=== PATIENT | male | born 1970 | race Caucasian/White ===

== ENCOUNTER 2021-06-30 18:20 | Inpatient (IN) | payer SELFPAY ==
[2021-06-30 19:00] VITALS: BP 130/83; PULSE 102; RESP 20; TEMP 37; O2SAT 95
[2021-06-30 19:59] VITALS: BMI 28.7
[2021-06-30] MEDS: trazodone 50 mg Tablet PO (21:23)
[2021-06-30] MEDS: hyDROXYzine 25 mg Capsule 50 MG PO (21:23)
--- NOTE | 2021-06-30 21:25 | PC.NURSE ---
PT REQUESTED SLEEP MED, TRAZODONE 50MG PO GIVEN.
[2021-06-30 21:50] VITALS: BP 135/93; PULSE 101; RESP 16; TEMP 36.7; O2SAT 98
--- NOTE | 2021-06-30 23:05 | PC.NURSE ---
PT RESTING QUIETLY WITH BOTH EYES CLOSED AT THIS TIME.
[2021-07-01 06:00] VITALS: BP 138/101; PULSE 75; RESP 18; TEMP 37; O2SAT 92
--- NOTE | 2021-07-01 08:39 | PM.NHP ---
Providers/Chief Complaint Admitting Physician: Roberto Silverio MD Chief Complaint: SI HPI NPU History of Present Illness Augusto Delgadillo is a 50 year old male who presented to an outside hospital reporting alcohol withdraw and suicidal ideation. He reported to them that he was an extreme alcoholic, drinking about a half-gallon of liquor a day, his last drink was about five or six hours before he presented, and endorsed he was having withdraw and started having thoughts to kill himself. He reported being vaccinated for COVID. He was having nausea, vomiting, and was unable to contract for safety. He was transferred to [facility] and admitted to the neuropsychiatric unit for definitive treatment of those issues. He presents today reporting that this is about his sixth inpatient hospitalization, and he has had outpatient services at [facility]. He is not currently on any medications. He reports having two suicide attempts in his life, the last one about ten years ago. He reports smoking about a pack and a half of cigarettes a day, drinks alcohol daily, about a half-gallon a day, endorses having marijuana with some regularity. He denies cocaine, methamphetamine, or opiates, but does report having done most drugs in the past. He has been to rehab two times and he has had about three DUI?s, with the last one being about two years ago. He reports his only home medication being Lyrica and Viagra, but he does not report having them recently. He had a drug screen lab done at an outside hospital. His blood alcohol was 229 and all his other drug screens were negative. He reports that he had been drinking heavy again and started trying to discontinue with his plan to get clean when he started feeling really bad a few days ago. He reports they kept him there at that hospital and gave him a ?dry detox? wherein they gave him no medication to assist him, but he reports that he has never gone through withdraw like he had, leading up to that, and he started feeling weird and that led to the suicidal thoughts. He reports that he wants to continue with sobriety but needed a safe place. He reports that he had been having depression but denied any desire for any medications or any interventions. He reports that he is not interested in going to a rehab, he wants to get back to work, and once he is back to work, he feels he will be able to move forward in general. PSYCHIATRIC HISTORY: As above. SUBSTANCE ABUSE HISTORY: As above. FAMILY HISTORY: He denies mental health, addiction, suicide attempts or completions, on either side of the family. DEVELOPMENTAL HISTORY: He denied any issues with his or delivery, reports he learned to walk and talk and met his developmental milestones on time, he reports he may have had special education classes, but he denies learning support, emotional support, or special education classes. PSYCHOSOCIAL HISTORY: He reports that his parents were together when he was born, and he has an older sister who is the product of that same union. He reports his mother did not have any other children, but he believes his dad did, but he is not really sure. He reports his childhood was good at first, no emotional or physical abuse, but he reports that his dad was very negative and at one point he was seeming like he was about to talk about things that happened to him in his childhood, because he did endorse trauma, but then someone came into the bathroom that is adjoining the room and it became clear that he was worried about what somebody might hear and that ended that part of the conversation. He did graduate from high school and has some college. He is a heterosexual with his longest relationship being fifteen years. He has been twice and twice. He has five children, three which are boys, age ranges 15 to 33, never been in the , endorses being a Rastafarian. 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 He reports that he lives in a trailer alone. LEGAL HISTORY: He has been in penitentiary about four times. MEDICAL HISTORY: He struggles with neuropathy, hypertension, hypercholesterolemia, back pain. Meds NPU Home Medications Medication Instructions Recorded Confirmed Last Taken Type pregabalin 100 mg PO DAILY 06/30/21 06/30/21 Unknown History sildenafil 100 mg PO DAILY PRN 06/30/21 06/30/21 Unknown History Allergies Allergy/AdvReac Type Severity Reaction Status Date / Time fenofibric acid Allergy Unknown Uncoded 06/30/21 20:30 Mental Status Exam MSE Comments: This is an overweight, versus obese, white male, with hospital scrubs, with limited grooming, and eye contact. No abnormal movements except for mild psychomotor retardation. Semi-cooperative with exam in mild distress. Speech was decreased rate and volume. Mood described as bad; affect congruent. Thought process, organized. Thought content: patient denied any suicidal or homicidal ideation, there were no delusions reported or noted, patient denied any auditory or visual hallucinations. Attention, concentration, and memory appear intact but were not formally tested. He is alert and oriented times three. Insight and judgment are fair. Impulse control is limited. Vitals/I&O/Wt Last Vital Signs Temp 98.1 F 06/30/21 21:50 Pulse 101 H 06/30/21 21:50 Resp 16 06/30/21 21:50 BP 135/93 06/30/21 21:50 Pulse Ox 98 06/30/21 21:50 Weight last 48 hrs Weight 90.718 kg Weight 90.718 kg A&P Assessment and plan (1) Alcohol dependence: Status: Acute (2) Alcohol withdrawal: Status: Acute (3) Suicidal thoughts: Status: Acute (4) Depression: Status: Acute (5) Anxiety: Status: Acute (6) Trauma in childhood: Status: Acute Additional A&P Information This is a 50 year old, white male, with a long history of addiction and reported trauma, some inpatient services and outpatient services, but recently relapse in his drinking again with some non-adherence to medication, who presented from an outside hospital for continued stabilization. RECOMMENDATION AND PLAN: 1. Continue current medication. 2. Encourage individual, group, and milieu therapy. 3. Continue q-15 minute checks for safety. 4. Continue CIWA protocol. Involuntary Hold Information 96 Hour Hold: 96 Hour Involuntary Admission: No Attestations NPU Medical Necessity Statement*: Inpatient hospitalization is medically necessary and the clinically appropriate intervention, at this time. We will monitor medications and make changes as indicated. Patient will be in the hospital for over two midnights. Likely length of stay is two to four days. Coding Level of Care Code Acute Waste Management Recycling Technician for Donna Fwd Diagnoses Alcohol dependence F10.20 Alcohol withdrawal F10.239 Suicidal thoughts R45.851 Depression F32.9 Anxiety F41.9 Trauma in childhood T14.90XA
[2021-07-01 14:00] VITALS: BP 131/87; PULSE 80; RESP 16; TEMP 36.9; O2SAT 94
[2021-07-01] MEDS: hyDROXYzine 25 mg Capsule 50 MG PO (15:02)
[2021-07-01] MEDS: nicotine 2 mg Gum BUCCAL ×2 (15:02→17:47)
--- NOTE | 2021-07-01 15:02 | PC.NURSE ---
PRN VISTARIL 50 MG GIVEN PO PER PT C/O STATED ANXIETY
[2021-07-01 20:14] VITALS: BP 138/98; PULSE 79; RESP 21; TEMP 36.5; O2SAT 95
--- NOTE | 2021-07-01 22:47 | PC.NURSE ---
CIWA 22, PT REPORTS SIGNIFICANT HX OF DRINKING, 1/2 GALLON OF VODKA DAILY MOST OF HIS LIFE. PT STATES HE HAD HIS LAST DRINK ON THURSDAY, HE STATES, I FEEL LIKE I AM ABOUT TO EXPLODE OUT OF MY BODY. PT IS EXPERIENCING MODERATED SENSITIVITY TO LIGHT AND SOUND, NO AVH REPORTED, BURNING IS MODERATE, PT IS RESTING TEARFUL IN HIS ROOM, STATED, I FEEL LIKE SHIT, I DIDN'T THINK THAT THERE WAS ANYTHING TO HELP ME. PT SCORED 22 ON CIWA, MED NURSE NOTIFIED OF PT NEED. PT STATES THAT IN THE PAST DURING WITHDRAW HE HAS EXPERIENCED SEIZURE LIKE ACTIVITY AND STATES THIS IS THE WORST I HAVE EVER FELT. PT WAS UNABLE TO TRACK WITH EYES CLOSED FINGER TO NOSE, LOSES BALANCE WITH EYES CLOSED, AND TREMOR IS MODERATE WITH EYES CLOSED AND ARMS EXTENDED V/S ARE 98.8, 70 AL, 93% RA, 16RR, AND 129/74 SUPINE BP.
[2021-07-01] MEDS: acetaminophen 325 mg Tablet 650 MG PO (23:20)
[2021-07-01] MEDS: LORazepam 2 mg Tablet PO (23:22)
[2021-07-01] MEDS: trazodone 50 mg Tablet PO (23:22)
--- NOTE | 2021-07-02 00:54 | PC.NURSE ---
Ativan 2mg PO given @2322, d/t CIWA of 22. reassessment of pt at 0015 on 07/02/21 pt is resting, no sign of discomfort or withdrawl symptoms at this time. pt is resting with RR 16.
[2021-07-02 06:00] VITALS: BP 134/91; PULSE 74; RESP 20; TEMP 36.7; O2SAT 94
[2021-07-02] MEDS: thiamine 100 mg Tablet PO (10:42)
[2021-07-02] MEDS: folic acid 1 mg Tablet PO (10:42)
[2021-07-02] MEDS: multivitamin therapeutic Tablet 1 TAB PO (10:42)
[2021-07-02] MEDS: LORazepam 2 mg Tablet PO ×2 (10:42→22:29)
[2021-07-02] MEDS: nicotine 21 mg Patch 1 PATCH TRANSDERMA (10:43)
--- NOTE | 2021-07-02 12:17 | NPU.GN ---
[facility] Group Topic: Depression Bingo/Worrisome thoughts General Mood of Group Augusto attended group today and participated by asking questions.
[2021-07-02 14:00] VITALS: BP 140/95; PULSE 80; RESP 16; TEMP 37.1; O2SAT 95
--- NOTE | 2021-07-02 17:50 | PM.NPN ---
Subjective NPU Subjective: Interval history: Forest presents today reporting that he feels he has made it through the storm that led him to the feeling he needed to go to the hospital. He feels like his withdrawal is mostly past and he started feeling better. 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 His plan is to avoid drinking and keep himself busy. We talked about the importance of active treatment and maintaining sobriety and a plan for discharge in the morning. Mental Status Exam MSE Comments: This is an overweight, versus obese, white male, with hospital scrubs, with limited grooming, and eye contact. No abnormal movements except for mild psychomotor retardation. More cooperative with exam in no acute distress. Speech was decreased rate and volume. Mood described as better; affect congruent. Thought process, organized. Thought content: patient denied any suicidal or homicidal ideation, there were no delusions reported or noted, patient denied any auditory or visual hallucinations. Attention, concentration, and memory appear intact but were not formally tested. He is alert and oriented times three. Insight and judgment are fair. Impulse control is limited, but improving. Vitals/I&O/Wt Last Vital Signs Temp 98.2 F 07/02/21 22:00 Pulse 100 07/02/21 22:00 Resp 18 07/02/21 22:00 BP 133/101 07/02/21 22:00 Pulse Ox 97 07/02/21 22:00 A&P Additional A&P Information (1) Alcohol dependence: (2) Alcohol withdrawal: (3) Suicidal thoughts: (4) Depression: (5) Anxiety: (6) Trauma in childhood: Additional A&P Information This is a 50 year old, white male, with a long history of addiction and reported trauma, some inpatient services and outpatient services, but recently relapse in his drinking again with some non-adherence to medication, who presented from an outside hospital for continued stabilization. RECOMMENDATION AND PLAN: 1. Continue current medication. 2. Encourage individual, group, and milieu therapy. 3. Continue q-15 minute checks for safety. 4. Continue CIWA protocol. Involuntary Hold Information 96 Hour Hold: 96 Hour Involuntary Admission: No Attestations NPU Medical Necessity Statement*: Inpatient hospitalization is medically necessary and the clinically appropriate intervention, at this time. We will monitor medications and make changes as indicated. Likely length of stay is 1-3 days. Coding Level of Care Code Acute Tank Farm Attendant for Donna Sol
[2021-07-02 22:00] VITALS: BP 133/101; PULSE 100; RESP 18; TEMP 36.8; O2SAT 97
[2021-07-02] MEDS: hyDROXYzine 25 mg Capsule 50 MG PO (22:00)
--- NOTE | 2021-07-02 22:00 | PC.NURSE ---
pt c/o increased anxiety, vistaril 50mg po given.
--- NOTE | 2021-07-02 22:30 | PC.NURSE ---
pt scorinf 17 on CIWA scale. Ativan 2mg po to be given. will continue to monitor.
--- NOTE | 2021-07-02 22:53 | PC.NURSE ---
OLGA 8-Rescored post Ativan administration. decreased symptoms from a score of 17. pt in dayroom at this time, states once my anxiety is manageable, I will go to bed.
--- NOTE | 2021-07-03 03:59 | PC.NURSE ---
Addendum entered by Beth Richards RN 07/03/21 04:05: 2mg Ativan po given, pt in his room, attempting to rest. Original Note: CIWA 17, pt restless and experiencing alcohol withdrawl.
[2021-07-03] MEDS: LORazepam 2 mg Tablet PO (04:04)
[2021-07-03 06:00] VITALS: BP 137/92; PULSE 74; RESP 18; TEMP 37.5; O2SAT 97
--- NOTE | 2021-07-03 07:42 | PM.NDC ---
Diagnoses at Discharge Discharge Diagnosis (1) Alcohol dependence: Status: Acute (2) Alcohol withdrawal: Status: Resolved (3) Suicidal thoughts: Status: Resolved (4) Depression: Status: Acute (5) Anxiety: Status: Acute (6) Trauma in childhood: Status: Acute Reason for Visit Reason for Visit: SI Brief History: History of Present Illness Augusto Delgadillo is a 50 year old male who presented to an outside hospital reporting alcohol withdraw and suicidal ideation. He reported to them that he was an extreme alcoholic, drinking about a half-gallon of liquor a day, his last drink was about five or six hours before he presented, and endorsed he was having withdraw and started having thoughts to kill himself. He reported being vaccinated for COVID. He was having nausea, vomiting, and was unable to contract for safety. He was transferred to [facility] and admitted to the neuropsychiatric unit for definitive treatment of those issues. He presents today reporting that this is about his sixth inpatient hospitalization, and he has had outpatient services at [facility]. He is not currently on any medications. He reports having two suicide attempts in his life, the last one about ten years ago. He reports smoking about a pack and a half of cigarettes a day, drinks alcohol daily, about a half-gallon a day, endorses having marijuana with some regularity. He denies cocaine, methamphetamine, or opiates, but does report having done most drugs in the past. He has been to rehab two times and he has had about three DUI?s, with the last one being about two years ago. He reports his only home medication being Lyrica and Viagra, but he does not report having them recently. He had a drug screen lab done at an outside hospital. His blood alcohol was 229 and all his other drug screens were negative. He reports that he had been drinking heavy again and started trying to discontinue with his plan to get clean when he started feeling really bad a few days ago. He reports they kept him there at that hospital and gave him a ?dry detox? wherein they gave him no medication to assist him, but he reports that he has never gone through withdraw like he had, leading up to that, and he started feeling weird and that led to the suicidal thoughts. He reports that he wants to continue with sobriety but needed a safe place. He reports that he had been having depression but denied any desire for any medications or any interventions. He reports that he is not interested in going to a rehab, he wants to get back to work, and once he is back to work, he feels he will be able to move forward in general. PSYCHIATRIC HISTORY: As above. SUBSTANCE ABUSE HISTORY: As above. FAMILY HISTORY: He denies mental health, addiction, suicide attempts or completions, on either side of the family. DEVELOPMENTAL HISTORY: He denied any issues with his or delivery, reports he learned to walk and talk and met his developmental milestones on time, he reports he may have had special education classes, but he denies learning support, emotional support, or special education classes. PSYCHOSOCIAL HISTORY: He reports that his parents were together when he was born, and he has an older sister who is the product of that same union. He reports his mother did not have any other children, but he believes his dad did, but he is not really sure. He reports his childhood was good at first, no emotional or physical abuse, but he reports that his dad was very negative and at one point he was seeming like he was about to talk about things that happened to him in his childhood, because he did endorse trauma, but then someone came into the bathroom that is adjoining the room and it became clear that he was worried about what somebody might hear and that ended that part of the conversation. He did graduate from high school and has some college. He is a heterosexual with his longest relationship being fifteen years. He has been twice and twice. He has five children, three which are boys, age ranges 15 to 33, never been in the , endorses being a Spiritism. 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 He reports that he lives in a trailer alone. LEGAL HISTORY: He has been in senior living about four times. MEDICAL HISTORY: He struggles with neuropathy, hypertension, hypercholesterolemia, back pain. Hospital Course Hospital Course He slowly acclimated to the individual, group and milieu therapies provided. He identified that he was on the tail end of his withdrawal when he started having these thoughts he has never had before and was concerned for his safety. He was able to use the resources on the unit to gain some perspective. He had marked improvement and was able to contract for safety prior to discharge. However he felt fairly confident that sobriety would allow him to be out of this mode of taking and no medications were started. At the outside hospital, patient had routine laboratory studies which were within normal limits except for few outliers. Additionally there was a general medical evaluation which was also within normal limits and revealed no new acute processes. Discharge Summary: At the time of discharge, he denied psychosis or lethality. Mood and anxiety were well managed. Patient endorsed a plan to avoid all drugs of abuse and follow-up with the aftercare recommendations of the treatment team. Patient was evaluated and deemed to be absent credible lethality, and had achieved the maximum benefit from an inpatient hospitalization, so was discharged. Involuntary Hold Information 96 Hour Hold: 96 Hour Involuntary Admission: No Mental Status Exam MSE Comments: This is an overweight, versus obese, white male, with hospital scrubs, with limited grooming, and eye contact. No abnormal movements except for mild psychomotor retardation. More cooperative with exam in no acute distress. Speech was decreased rate and volume. Mood described as better; affect congruent. Thought process, organized. Thought content: patient denied any suicidal or homicidal ideation, there were no delusions reported or noted, patient denied any auditory or visual hallucinations. Attention, concentration, and memory appear intact but were not formally tested. He is alert and oriented times three. Insight and judgment are fair. Impulse control is improving. Discharge Data Vitals: Last Vital Signs Temp 99.5 F 07/03/21 06:00 Pulse 74 07/03/21 06:00 Resp 18 07/03/21 06:00 BP 137/92 07/03/21 06:00 Pulse Ox 97 07/03/21 06:00 Discharge Plan Discharge Patient Disposition: Home Condition: Stable Prescriptions: New Vitamin B-1 (mononitrate) 100 mg Tablet 100 mg PO DAILY 30 Days Qty: 30 RF: 1 Discontinued sildenafil 100 mg Tablet 100 mg PO DAILY PRN (Reason: Erectile Dysfunction) RF: 0 pregabalin 100 mg Capsule 100 mg PO DAILY RF: 0 Discharge Orders: Discharge Order (Routine); Ordered 07/03/21 Ordered By: Roberto Silverio Referrals: [facility] [Outside] (Walk in Thursday through Thursday 8am to 4pm.) Discharge Diet: Regular Discharge Activity: Resume usual activity Patient Instructions: Generalized Anxiety Disorder (DC), Abuse of Alcohol (DC), Opioid Safety Discharge Attestations NPU Time Spent in Discharge Care*: less than 30 min Specific Discharge Activities: Specific discharge activities: educating patient, discussing with classification case manager/social workers/dc planners, documenting/other paperwork and evaluating patient/reviewing data Coding Level of Care Code Acute Chg FW DC note Diagnoses Alcohol dependence F10.20 Alcohol withdrawal F10.239 Suicidal thoughts R45.851 Depression F32.9 Anxiety F41.9 Trauma in childhood T14.90XA
[2021-07-03 08:22] VITALS: BP 137/92; PULSE 74; RESP 18; TEMP 37.5; O2SAT 97
== END 2021-07-03 09:20 | disposition home or self-care (01) | DRG 897 ==
PROVIDERS: Admitting Provider Psychiatry & Neurology Psychiatry; Visit Provider Psychiatry & Neurology Psychiatry
DX: F10.239 Alcohol dependence with withdrawal, unspecified (principal); R45.851 Suicidal ideations; F32.9 Major depressive disorder, single episode, unspecified; F41.9 Anxiety disorder, unspecified; T14.90XA Injury, unspecified, initial encounter; F17.210 Nicotine dependence, cigarettes, uncomplicated; F12.20 Cannabis dependence, uncomplicated; Y90.7 Blood alcohol level of 200-239 mg/100 ml; E66.9 Obesity, unspecified; Z68.28 Body mass index [BMI] 28.0-28.9, adult
CPT/HCPCS: 96372; J3411